=== PATIENT | male | born 1975 | race Caucasian/White ===

== ENCOUNTER 2020-12-03 21:55 | Emergency (ER) | payer MEDICARE, OTHER ==
[~2020-12-03 21:55] MED LIST: AUGMENTIN 875-1 EACH PO; BRILINTA90 MG PO; CLEOCIN HCL300 MG PO; ECOTRIN81 MG PO; GLUCAGON IV/SC 11 MG IM; GLUTOSE 1537.5 GM PO; HUMULIN N100 UNIT/1 SC; HUMULIN N100 UNIT/1 SQ; HUMULIN R100 UNIT/1 INJ; IBU600 MG PO; IBUPROFEN600 MG PO; LIPITOR40 MG PO; LISINOPRIL2.5 MG PO; LOPRESSOR 25 MG25 MG PO; PEPCID20 MG PO; Viscous lidocaine2% TOP; ZOFRAN4 MG PO
[2020-12-04] MEDS ORDERED: NORFLEX 100 MG100 MG PO (01:12)
== END 2020-12-04 01:34 | disposition home or self-care (01) ==
LOC: ER1 21:55
DX: S30.0XXA Contusion of lower back and pelvis, initial encounter (principal); M54.6 Pain in thoracic spine; E11.9 Type 2 diabetes mellitus without complications; E78.5 Hyperlipidemia, unspecified; F17.290 Nicotine dependence, other tobacco product, uncomplicated; I25.10 Atherosclerotic heart disease of native coronary artery without angina pectoris; I25.2 Old myocardial infarction; Z88.8 Allergy status to other drugs, medicaments and biological substances; Z79.4 Long term (current) use of insulin; W00.0XXA Fall on same level due to ice and snow, initial encounter
CPT/HCPCS: 72128; 72131; 99283

== ENCOUNTER 2021-01-21 16:17 | Emergency (ER) | payer MEDICARE, OTHER ==
[~2021-01-21 16:17] MED LIST changes: +NORFLEX 100 MG100 MG PO
[2021-01-21 17:06] LABS: HEMOGLOBIN 12.9 gm/dl (14.0-17.5); RED BLOOD COUNT 4.21 M/UL (4.20-5.50); WHITE BLOOD COUNT 8.5 K/UL (4.5-11.0)
[2021-01-21 18:10] LABS: BUN/CREATININE RATIO 17 (0-10)
[2021-01-21] MEDS ORDERED: TESSALON PERLE100 MG PO (20:48)
[2021-01-21] MEDS ORDERED: VENTOLIN HFA 66.7 GM INH (20:48)
[2021-01-21] MEDS ORDERED: DOXYCYCLINE HY100 MG PO (20:48)
== END 2021-01-21 21:14 | disposition home or self-care (01) ==
LOC: ER1 16:17
PROVIDERS: Physician Assistant
DX: J18.9 Pneumonia, unspecified organism (principal); E11.9 Type 2 diabetes mellitus without complications; I25.10 Atherosclerotic heart disease of native coronary artery without angina pectoris; Z90.49 Acquired absence of other specified parts of digestive tract; Z20.822 Contact with and (suspected) exposure to COVID-19
CPT/HCPCS: 0240U; 71045; 80053; 82550; 82553; 83605; 83874; 84484; 85025; 87040; 93005; 94664; 96365; 96375; 99284; J0696; J2270; J2405; Q9967

== ENCOUNTER 2021-03-23 15:16 | Emergency (ER) | payer MEDICARE, OTHER ==
[~2021-03-23 15:16] MED LIST changes: +DOXYCYCLINE HY100 MG PO; +TESSALON PERLE100 MG PO; +VENTOLIN HFA 66.7 GM INH
[2021-03-23] MEDS ORDERED: ENDOCET 5-3251 EACH PO (18:43)
== END 2021-03-23 19:50 | disposition home or self-care (01) ==
LOC: ER1 15:16
DX: M47.27 Other spondylosis with radiculopathy, lumbosacral region (principal)
CPT/HCPCS: 72128; 72131; 72170; 96374; 96375; 99284; J2270; J2405

== ENCOUNTER 2021-03-25 19:07 | Emergency (ER) | payer MEDICARE, OTHER ==
[~2021-03-25 19:07] MED LIST changes: +ENDOCET 5-3251 EACH PO
== END 2021-03-25 23:17 | disposition short-term general hospital (02) ==
LOC: ER1 19:07
DX: M54.9 Dorsalgia, unspecified (principal); I25.2 Old myocardial infarction; I51.9 Heart disease, unspecified; Z20.822 Contact with and (suspected) exposure to COVID-19
CPT/HCPCS: 96372; 96374; 96375; 96376; 99284; J2270; J2310; J2405; J2550; U0002

== ENCOUNTER 2021-04-20 19:59 | Emergency (ER) | payer MEDICARE, OTHER ==
[2021-04-20] MEDS ORDERED: PERCOCET 5-3251 EACH PO (23:46)
== END 2021-04-21 00:12 | disposition home or self-care (01) ==
LOC: ER1 19:59
DX: S39.92XA Unspecified injury of lower back, initial encounter (principal); M51.37 Other intervertebral disc degeneration, lumbosacral region; E10.9 Type 1 diabetes mellitus without complications; E78.5 Hyperlipidemia, unspecified; I10 Essential (primary) hypertension; Z90.49 Acquired absence of other specified parts of digestive tract; Z88.6 Allergy status to analgesic agent; Z88.8 Allergy status to other drugs, medicaments and biological substances; W19.XXXA Unspecified fall, initial encounter
CPT/HCPCS: 99283

== ENCOUNTER 2021-04-25 15:52 | Emergency (ER) | payer MEDICARE, OTHER ==
[~2021-04-25 15:52] MED LIST changes: +PERCOCET 5-3251 EACH PO
== END 2021-04-25 17:15 | disposition left against medical advice (07) ==
LOC: ER1 15:52
DX: Z53.21 Procedure and treatment not carried out due to patient leaving prior to being seen by health care provider (principal)

== ENCOUNTER 2021-05-02 21:15 | Emergency (ER) | payer MEDICARE, OTHER ==
[2021-05-02 22:19] LABS: BUN/CREATININE RATIO 23 (0-10)
[2021-05-02 22:24] LABS: HEMOGLOBIN 13.6 gm/dl (14.0-17.5); RED BLOOD COUNT 4.37 M/UL (4.20-5.50); WHITE BLOOD COUNT 7.4 K/UL (4.5-11.0)
== END 2021-05-03 00:10 | disposition home or self-care (01) ==
LOC: ER1 21:15
PROVIDERS: Physician Assistant
DX: K29.80 Duodenitis without bleeding (principal); K26.9 Duodenal ulcer, unspecified as acute or chronic, without hemorrhage or perforation
CPT/HCPCS: 72131; 80053; 85025; 85652; 86140; 99284

== ENCOUNTER 2021-05-16 18:53 | Emergency (ER) | payer MEDICARE, OTHER | END 2021-05-16 18:55 | disposition left against medical advice (07) | LOC: ER1 18:53 | DX: Z53.21 Procedure and treatment not carried out due to patient leaving prior to being seen by health care provider (principal) ==

== ENCOUNTER 2021-05-18 21:23 | Emergency (ER) | payer MEDICARE, OTHER | END 2021-05-18 23:05 | disposition home or self-care (01) | LOC: ER1 21:23 | DX: G89.29 Other chronic pain (principal); M54.5 Low back pain; E11.9 Type 2 diabetes mellitus without complications; I11.9 Hypertensive heart disease without heart failure; Z79.4 Long term (current) use of insulin; Z90.49 Acquired absence of other specified parts of digestive tract; Z88.8 Allergy status to other drugs, medicaments and biological substances; I25.2 Old myocardial infarction | CPT/HCPCS: 99283 ==

== ENCOUNTER 2021-05-21 20:35 | Emergency (ER) | payer MEDICARE, OTHER ==
[2021-05-21 21:33] LABS: HEMOGLOBIN 12.5 gm/dl (14.0-17.5); RED BLOOD COUNT 4.21 M/UL (4.20-5.50); WHITE BLOOD COUNT 6.2 K/UL (4.5-11.0)
[2021-05-21 21:52] LABS: BUN/CREATININE RATIO 25 (0-10)
== END 2021-05-22 05:19 | disposition short-term general hospital (02) ==
LOC: ER1 20:35
PROVIDERS: Student in an Organized Health Care Education/Training Program
DX: M40.56 Lordosis, unspecified, lumbar region (principal); I25.10 Atherosclerotic heart disease of native coronary artery without angina pectoris; E11.9 Type 2 diabetes mellitus without complications; Z90.49 Acquired absence of other specified parts of digestive tract
CPT/HCPCS: 72131; 80053; 81001; 82550; 82553; 83874; 84484; 85025; 85652; 86140; 93005; 96374; 96375; 96376; 99285; J2270; J2405

== ENCOUNTER 2021-06-02 11:06 | Emergency (ER) | payer MEDICARE, OTHER | END 2021-06-02 15:26 | disposition home or self-care (01) | LOC: ER1 11:06 | DX: S30.0XXA Contusion of lower back and pelvis, initial encounter (principal); E11.9 Type 2 diabetes mellitus without complications; I10 Essential (primary) hypertension; Z79.4 Long term (current) use of insulin; Z79.82 Long term (current) use of aspirin; Z88.8 Allergy status to other drugs, medicaments and biological substances; W17.89XA Other fall from one level to another, initial encounter; Y92.009 Unspecified place in unspecified non-institutional (private) residence as the place of occurrence of the external cause | CPT/HCPCS: 72100; 72220; 73502; 73700; 96374; 96375; 99284; J2270; J2405 ==

== ENCOUNTER 2021-06-21 13:53 | Emergency (ER) | payer MEDICARE, OTHER ==
[2021-06-21] MEDS ORDERED: BACLOFEN10 MG PO (16:56)
[2021-06-21] MEDS ORDERED: INDOCIN 50 MG C50 MG PO (16:56)
== END 2021-06-21 17:02 | disposition home or self-care (01) ==
LOC: ER1 13:53
DX: M54.5 Low back pain (principal); G89.29 Other chronic pain; E78.5 Hyperlipidemia, unspecified; E10.9 Type 1 diabetes mellitus without complications; I10 Essential (primary) hypertension; Z88.8 Allergy status to other drugs, medicaments and biological substances; Z79.899 Other long term (current) drug therapy
CPT/HCPCS: 99283

== ENCOUNTER 2021-07-31 15:02 | Emergency (ER) | payer MEDICARE, OTHER ==
[~2021-07-31 15:02] MED LIST changes: +BACLOFEN10 MG PO; +INDOCIN 50 MG C50 MG PO
[2021-07-31 15:23] LABS: HEMOGLOBIN 12.4 gm/dl (14.0-17.5); WHITE BLOOD COUNT 13.6 K/UL (4.5-11.0)
[2021-07-31 16:15] LABS: BUN/CREATININE RATIO 17 (0-10)
[2021-08-01] MEDS ORDERED: PROZAC 20 MG CA20 MG PO (23:04)
== END 2021-08-01 01:00 | disposition home or self-care (01) ==
LOC: ER1 15:02
PROVIDERS: Emergency Medicine
DX: R56.9 Unspecified convulsions (principal); R51.9 Headache, unspecified; Z20.822 Contact with and (suspected) exposure to COVID-19
CPT/HCPCS: 62270; 70450; 71045; 80053; 80307; 81001; 82962; 83605; 83735; 84100; 85025; 86140; 87040; 87086; 96365; 96374; 96375; 96376; 99285; J1170; J1885; J2250; J2270; J2405; J2550; J7030; U0003

== ENCOUNTER 2021-08-01 13:50 | Observation (INO) | payer MEDICARE, OTHER ==
[~2021-08-01] VITALS: Ht 172.7 cm; Wt 95.3 kg
[2021-08-01 15:02] LABS: HEMOGLOBIN 11.3 gm/dl (14.0-17.5); RED BLOOD COUNT 3.72 M/UL (4.20-5.50)
[2021-08-01 15:04] LABS: WHITE BLOOD COUNT 5.3 K/UL (4.5-11.0)
[2021-08-01 15:09] LABS: BUN/CREATININE RATIO 19 (0-10)
[2021-08-01 16:03] LABS: CRYPTOCOCCUS NEOFORMANS/GATTII Not Detected (Negative); CYTOMEGALOVIRUS Not Detected (Negative); ENTEROVIRUS Not Detected (Negative); ESCHERICHIA COLI K1 Not Detected (Negative); HAEMOPHILUS INFLUENZAE Not Detected (Negative); HERPES SIMPLEX VIRUS 1 Not Detected (Negative); HERPES SIMPLEX VIRUS 2 Not Detected (Negative); HUMAN HERPESVIRUS 6 Not Detected (Negative); HUMAN PARECHOVIRUS Not Detected (Negative); LISTERIA MONOCYTOGENES Not Detected (Negative); NEISERRIA MENINGITIDIS Not Detected (Negative); STREPTOCOCCUS AGALACTIAE Not Detected (Negative); STREPTOCOCCUS PNEUMONIAE Not Detected (Negative); VARICELLA ZOSTER VIRUS Not Detected (Negative)
[2021-08-01 16:41] LABS: RBC (AUTOMATED) 100 10^6 (0); WBC (AUTOMATED 2 10^3 (0-5)
[2021-08-01 16:42] LABS: GLUCOSE,CSF 130 mg/dL (50-80); TOTAL PROTEIN,CSF 74 mg/dL (20-45); WBC (AUTOMATED 12 10^3 (0-5)
[2021-08-01] MEDS ORDERED: PROZAC 20 MG CA20 MG PO (23:04)
[2021-08-02 06:23] LABS: HEMOGLOBIN 12.9 gm/dl (14.0-17.5); WHITE BLOOD COUNT 6.1 K/UL (4.5-11.0)
[2021-08-02 06:58] LABS: BUN/CREATININE RATIO 20 (0-10)
[2021-08-02 07:03] LABS: RED BLOOD COUNT 4.19 M/UL (4.20-5.50)
--- NOTE | 2021-08-02 10:23 | NUR ---
1000: PATIENT C/O LIZZIE, RN ADMINISTERED TORADOL PER ORDER. PATIENT STATES THAT HE IS LEAVING BECAUSE HE "HATES THIS PLACE". RN ATTEMPTED TO IDENTIFY REASONS FOR PATIENTS UNHAPPINESS WITH THE FACILITY, PATIENT STATES "THEY DON'T KNOW WHAT THEY ARE DOING". RN EXITED THE ROOM TO GATHER SUPPLIES TO REMOVE PATIENTS IV, BECAUSE HE WAS REMOVING IT HIMSELF. RN INFORMED DR ACEVEDO, SHE HAD JUST ARRIVED TO FLOOR. DR ABBOTT SPOKE WITH THE PATIENT AND THE PATIENTS DECISION TO LEAVE AGAINST MEDICAL ADVICE DID NOT CHANGE. 1017: PATIENT SIGNED AMA PAPER AND EXITED THE FLOOR AMBULATING TO THE ELEVATOR.
== END 2021-08-02 10:28 | disposition left against medical advice (07) ==
LOC: ER1 13:50 → CDU 19:56 → MED SURG 4 19:56
PROVIDERS: Emergency Medicine; Internal Medicine; ADMIT Internal Medicine
DX: R51.9 Headache, unspecified (principal); E10.649 Type 1 diabetes mellitus with hypoglycemia without coma; I10 Essential (primary) hypertension; I25.10 Atherosclerotic heart disease of native coronary artery without angina pectoris; Z95.5 Presence of coronary angioplasty implant and graft; Z20.822 Contact with and (suspected) exposure to COVID-19
CPT/HCPCS: 36415; 80048; 82945; 84157; 85025; 86140; 87070; 87205; 87483; 89051; 96374; 96375; 96376; 99285; G0378; J0696; J1170; J1885; J2550; J3370; J7050; J7070; U0002

== ENCOUNTER 2021-08-07 17:18 | Emergency (ER) | payer MEDICARE, OTHER ==
[~2021-08-07 17:18] MED LIST changes: +PROZAC 20 MG CA20 MG PO
[2021-08-07 18:23] LABS: HEMOGLOBIN 12.7 gm/dl (14.0-17.5); RED BLOOD COUNT 4.11 M/UL (4.20-5.50); WHITE BLOOD COUNT 5.4 K/UL (4.5-11.0)
[2021-08-07 18:49] LABS: BUN/CREATININE RATIO 20 (0-10)
[2021-08-07] MEDS ORDERED: PERCOCET 5/325 T1 EA PO (20:29)
== END 2021-08-07 20:48 | disposition home or self-care (01) ==
LOC: ER1 17:18
PROVIDERS: Emergency Medicine
DX: R51.9 Headache, unspecified (principal); I25.10 Atherosclerotic heart disease of native coronary artery without angina pectoris; E11.9 Type 2 diabetes mellitus without complications; I10 Essential (primary) hypertension
CPT/HCPCS: 70450; 72131; 80053; 85025; 85610; 85652; 85730; 86140; 87040; 96374; 96375; 96376; 99284; J2270; J2405; J7030

== ENCOUNTER 2021-09-07 20:59 | Emergency (ER) | payer MEDICARE, OTHER ==
[~2021-09-07 20:59] MED LIST changes: +PERCOCET 5/325 T1 EA PO
[2021-09-07] MEDS ORDERED: TYLENOL325 M1 PO (22:15)
== END 2021-09-07 22:29 | disposition home or self-care (01) ==
LOC: ER1 20:59
DX: Z04.3 Encounter for examination and observation following other accident (principal); E10.9 Type 1 diabetes mellitus without complications; I25.2 Old myocardial infarction; Z88.8 Allergy status to other drugs, medicaments and biological substances
CPT/HCPCS: 72040; 73030; 99283

== ENCOUNTER 2021-09-19 15:57 | Emergency (ER) | payer MEDICARE, OTHER ==
[~2021-09-19 15:57] MED LIST changes: +TYLENOL325 M1 PO
[2021-09-19 16:27] LABS: HEMOGLOBIN 14.5 gm/dl (14.0-17.5); RED BLOOD COUNT 4.73 M/UL (4.20-5.50)
[2021-09-19 16:52] LABS: BUN/CREATININE RATIO 21 (0-10)
[2021-09-19] MEDS ORDERED: PHENERGAN 25 MG25 M1 PO (19:05)
== END 2021-09-19 19:22 | disposition home or self-care (01) ==
LOC: ER1 15:57
PROVIDERS: Student in an Organized Health Care Education/Training Program
DX: R51.9 Headache, unspecified (principal); R11.10 Vomiting, unspecified; R00.0 Tachycardia, unspecified; I11.9 Hypertensive heart disease without heart failure; E11.9 Type 2 diabetes mellitus without complications; Z20.822 Contact with and (suspected) exposure to COVID-19; Z87.891 Personal history of nicotine dependence; Z88.6 Allergy status to analgesic agent
CPT/HCPCS: 71045; 80053; 82550; 82553; 83874; 84484; 85025; 96374; 99284; J0780; J1200; J1885; U0002

== ENCOUNTER 2021-10-03 19:46 | Emergency (ER) | payer MEDICARE, OTHER ==
[~2021-10-03 19:46] MED LIST changes: +PHENERGAN 25 MG25 M1 PO
[2021-10-03 21:26] LABS: RED BLOOD COUNT 4.63 M/UL (4.20-5.50)
[2021-10-03 21:40] LABS: BUN/CREATININE RATIO 19 (0-10)
== END 2021-10-04 00:29 | disposition short-term general hospital (02) ==
LOC: ER1 19:46
PROVIDERS: Emergency Medicine
DX: S09.90XA Unspecified injury of head, initial encounter (principal); M54.50 Low back pain, unspecified; Z20.822 Contact with and (suspected) exposure to COVID-19; I51.9 Heart disease, unspecified; E11.9 Type 2 diabetes mellitus without complications; R20.0 Anesthesia of skin; W01.10XA Fall on same level from slipping, tripping and stumbling with subsequent striking against unspecified object, initial encounter
CPT/HCPCS: 70450; 72131; 80053; 82550; 82553; 83874; 84484; 85025; 85652; 86140; 93005; 96374; 96375; 96376; 99285; J2270; J2405; U0002

== ENCOUNTER 2021-11-20 17:15 | Emergency (ER) | payer MEDICARE, OTHER | END 2021-11-20 22:59 | disposition left against medical advice (07) | LOC: ER1 17:15 | DX: R55 Syncope and collapse (principal); R05.9 Cough, unspecified; R11.10 Vomiting, unspecified; R00.0 Tachycardia, unspecified; R19.7 Diarrhea, unspecified; E78.5 Hyperlipidemia, unspecified; I11.9 Hypertensive heart disease without heart failure; E11.9 Type 2 diabetes mellitus without complications; Z95.5 Presence of coronary angioplasty implant and graft; Z90.49 Acquired absence of other specified parts of digestive tract; F17.220 Nicotine dependence, chewing tobacco, uncomplicated; Z88.6 Allergy status to analgesic agent | CPT/HCPCS: 99283 ==

== ENCOUNTER 2021-11-28 09:59 | Emergency (ER) | payer MEDICARE, OTHER | END 2021-11-28 10:16 | disposition left against medical advice (07) | LOC: ER1 09:59 | DX: Z53.21 Procedure and treatment not carried out due to patient leaving prior to being seen by health care provider (principal) ==

== ENCOUNTER 2021-12-16 19:41 | Observation (INO) | payer MEDICARE, OTHER ==
[~2021-12-16] VITALS: Ht 172.7 cm; Wt 98.0 kg
[2021-12-16 20:33] LABS: HEMOGLOBIN 13.5 gm/dl (14.0-17.5); RED BLOOD COUNT 4.56 M/UL (4.20-5.50); WHITE BLOOD COUNT 7.6 K/UL (4.5-11.0)
[2021-12-16 21:19] LABS: BUN/CREATININE RATIO 22 (0-10)
[2021-12-17] MEDS ORDERED: HYDROCODON-ACE1 EAC4 PO (00:06)
[2021-12-17 04:25] LABS: HEMOGLOBIN 11.9 gm/dl (14.0-17.5); RED BLOOD COUNT 4.06 M/UL (4.20-5.50); WHITE BLOOD COUNT 6.7 K/UL (4.5-11.0)
[2021-12-17 04:53] LABS: BUN/CREATININE RATIO 22 (0-10)
[2021-12-17] MEDS ORDERED: ISOSORBIDE MONO30 MG PO (16:12)
== END 2021-12-17 16:34 | disposition home or self-care (01) ==
LOC: ER1 19:41 → CDU 22:57 → MED SURG 4 22:57
PROVIDERS: Physician Assistant; ADMIT Internal Medicine
DX: I25.119 Atherosclerotic heart disease of native coronary artery with unspecified angina pectoris (principal); E10.9 Type 1 diabetes mellitus without complications; I10 Essential (primary) hypertension; E78.5 Hyperlipidemia, unspecified; Z95.5 Presence of coronary angioplasty implant and graft; Z79.82 Long term (current) use of aspirin; Z79.899 Other long term (current) drug therapy; Z87.891 Personal history of nicotine dependence
CPT/HCPCS: ECHO; 36415; 71045; 78452; 80048; 80053; 80061; 82550; 82553; 82962; 83036; 83735; 83880; 84439; 84443; 84484; 85025; 93005; 93017; 93306; 96374; 96376; 99285; A9502; G0378; J2270; J2785

== ENCOUNTER 2021-12-22 10:26 | Emergency (ER) | payer MEDICARE, OTHER ==
[~2021-12-22 10:26] MED LIST changes: +HYDROCODON-ACE1 EAC4 PO; +ISOSORBIDE MONO30 MG PO
[2021-12-22 11:01] LABS: HEMOGLOBIN 13.7 gm/dl (14.0-17.5); RED BLOOD COUNT 4.64 M/UL (4.20-5.50); WHITE BLOOD COUNT 7.8 K/UL (4.5-11.0)
[2021-12-22 11:30] LABS: BUN/CREATININE RATIO 17 (0-10)
== END 2021-12-22 14:54 | disposition home or self-care (01) ==
LOC: ER1 10:26
PROVIDERS: Physician Assistant
DX: R10.9 Unspecified abdominal pain (principal); R00.0 Tachycardia, unspecified; Z87.442 Personal history of urinary calculi; Z88.6 Allergy status to analgesic agent
CPT/HCPCS: 80053; 81001; 83605; 83690; 85025; 87040; 87086; 96374; 96375; 99284; J1885; J2270; J2405

== ENCOUNTER 2022-01-31 18:41 | Emergency (ER) | payer MEDICARE, OTHER ==
[2022-01-31 19:32] LABS: RED BLOOD COUNT 3.94 M/UL (4.20-5.50); WHITE BLOOD COUNT 4.9 K/UL (4.5-11.0)
[2022-01-31 20:22] LABS: BUN/CREATININE RATIO 21 (0-10)
[2022-01-31] MEDS ORDERED: ZOFRAN 4 MG TAB4 MG PO (22:59)
== END 2022-01-31 23:10 | disposition home or self-care (01) ==
LOC: ER1 18:41
PROVIDERS: Physician Assistant
DX: R07.9 Chest pain, unspecified (principal); E11.9 Type 2 diabetes mellitus without complications; I10 Essential (primary) hypertension; Z88.8 Allergy status to other drugs, medicaments and biological substances; Z79.4 Long term (current) use of insulin
CPT/HCPCS: 71045; 80053; 81001; 82550; 82553; 82962; 83880; 84484; 85025; 93005; 96374; 96375; 99285; C9113; J2405; J7030

== ENCOUNTER 2022-02-19 17:31 | Emergency (ER) | payer MEDICARE, OTHER ==
[~2022-02-19 17:31] MED LIST changes: +ZOFRAN 4 MG TAB4 MG PO
[2022-02-19 18:49] LABS: HEMOGLOBIN 13.4 gm/dl (14.0-17.5); RED BLOOD COUNT 4.31 M/UL (4.20-5.50); WHITE BLOOD COUNT 6.9 K/UL (4.5-11.0)
[2022-02-19 19:14] LABS: BUN/CREATININE RATIO 24 (0-10)
[2022-02-19] MEDS ORDERED: PROTONIX40 MG PO (21:13)
== END 2022-02-19 21:25 | disposition home or self-care (01) ==
LOC: ER1 17:31
PROVIDERS: Physician Assistant
DX: K21.9 Gastro-esophageal reflux disease without esophagitis (principal); I11.9 Hypertensive heart disease without heart failure; E10.9 Type 1 diabetes mellitus without complications; Z88.6 Allergy status to analgesic agent; Z79.82 Long term (current) use of aspirin; Z95.5 Presence of coronary angioplasty implant and graft; Z79.899 Other long term (current) drug therapy
CPT/HCPCS: 71045; 80053; 82550; 82553; 83605; 83690; 84484; 85025; 85610; 93005; 96374; 96375; 96376; 99285; C9113; J2270; J2405; J7030; Q9967

== ENCOUNTER 2022-02-23 12:28 | Emergency (ER) | payer MEDICARE, OTHER ==
[~2022-02-23 12:28] MED LIST changes: +PROTONIX40 MG PO
[2022-02-23 13:17] LABS: HEMOGLOBIN 13.7 gm/dl (14.0-17.5); RED BLOOD COUNT 4.43 M/UL (4.20-5.50); WHITE BLOOD COUNT 6.2 K/UL (4.5-11.0)
[2022-02-23 13:44] LABS: BUN/CREATININE RATIO 20 (0-10)
[2022-02-23] MEDS ORDERED: ONDANSETRON ODT4 MG SL (20:53)
[2022-02-23] MEDS ORDERED: CARAFATE 1 GM TA1 GM PO (20:53)
== END 2022-02-23 21:00 | disposition home or self-care (01) ==
LOC: ER1 12:28
PROVIDERS: Physician Assistant
DX: R10.13 Epigastric pain (principal); E10.649 Type 1 diabetes mellitus with hypoglycemia without coma; K92.0 Hematemesis; I11.9 Hypertensive heart disease without heart failure; F17.200 Nicotine dependence, unspecified, uncomplicated; Z87.442 Personal history of urinary calculi; Z88.6 Allergy status to analgesic agent; Z79.82 Long term (current) use of aspirin
CPT/HCPCS: 74022; 80053; 81001; 82550; 82553; 82962; 83690; 84484; 85025; 93005; 96374; 96375; 96376; 99284; C9113; J2270; J2405

== ENCOUNTER → 2022-02-26 | Outpatient (CLI) | payer MEDICARE, OTHER ==
[~2022-02-26] MED LIST changes: +CARAFATE 1 GM TA1 GM PO; +ONDANSETRON ODT4 MG SL
== END ==
LOC: LAB 09:01
DX: R10.13 Epigastric pain (principal)
CPT/HCPCS: 36415; 82150; 83690

== ENCOUNTER → 2022-02-28 | Day surgery (SDC) | payer MEDICARE, OTHER | END | disposition home or self-care (01) | LOC: OR 07:08 | DX: K31.9 Disease of stomach and duodenum, unspecified (principal); K21.00 Gastro-esophageal reflux disease with esophagitis, without bleeding; K92.0 Hematemesis; E66.9 Obesity, unspecified; I10 Essential (primary) hypertension; E10.9 Type 1 diabetes mellitus without complications; E78.5 Hyperlipidemia, unspecified; Z68.31 Body mass index [BMI] 31.0-31.9, adult; Z79.82 Long term (current) use of aspirin; Z79.899 Other long term (current) drug therapy | CPT/HCPCS: 82962; J2001; J2405; J2704; J3010; J7040 ==

== ENCOUNTER 2022-03-27 21:44 | Emergency (ER) | payer MEDICARE, OTHER ==
[~2022-03-27 21:44] MED LIST changes: +ZOFRAN ODT 4 MG4 MG PO
== END 2022-03-28 03:22 | disposition home or self-care (01) ==
LOC: ER1 21:44
DX: S39.012A Strain of muscle, fascia and tendon of lower back, initial encounter (principal); E11.9 Type 2 diabetes mellitus without complications; I11.9 Hypertensive heart disease without heart failure; Z88.6 Allergy status to analgesic agent; F17.200 Nicotine dependence, unspecified, uncomplicated; X50.9XXA Other and unspecified overexertion or strenuous movements or postures, initial encounter
CPT/HCPCS: 72128; 72131; 99284; J2270

== ENCOUNTER 2022-03-29 20:59 | Emergency (ER) | payer MEDICARE, OTHER | END 2022-03-30 00:13 | disposition left against medical advice (07) | LOC: ER1 20:59 | DX: M25.512 Pain in left shoulder (principal); R07.81 Pleurodynia; R07.89 Other chest pain; M54.2 Cervicalgia; E78.5 Hyperlipidemia, unspecified; F17.210 Nicotine dependence, cigarettes, uncomplicated; I11.9 Hypertensive heart disease without heart failure; I25.10 Atherosclerotic heart disease of native coronary artery without angina pectoris; I25.2 Old myocardial infarction; E11.9 Type 2 diabetes mellitus without complications; Z79.4 Long term (current) use of insulin; Z88.6 Allergy status to analgesic agent; W19.XXXA Unspecified fall, initial encounter | CPT/HCPCS: 71045; 72125; 72128; 72131; 73030; 99283 ==

== ENCOUNTER 2022-04-20 18:42 | Emergency (ER) | payer MEDICARE, OTHER ==
[2022-04-20 20:07] LABS: RED BLOOD COUNT 4.41 M/UL (4.20-5.50); WHITE BLOOD COUNT 7.2 K/UL (4.5-11.0)
[2022-04-20 20:28] LABS: BUN/CREATININE RATIO 22 (0-10)
== END 2022-04-20 21:25 | disposition home or self-care (01) ==
LOC: ER1 18:42
PROVIDERS: Student in an Organized Health Care Education/Training Program
DX: E11.649 Type 2 diabetes mellitus with hypoglycemia without coma (principal); I10 Essential (primary) hypertension; F17.210 Nicotine dependence, cigarettes, uncomplicated; Z88.6 Allergy status to analgesic agent; Z79.4 Long term (current) use of insulin; Z95.5 Presence of coronary angioplasty implant and graft
CPT/HCPCS: 80053; 82550; 82553; 82962; 83605; 84484; 85025; 93005; 99285

== ENCOUNTER 2022-05-01 15:04 | Emergency (ER) | payer MEDICARE, OTHER ==
[2022-05-01 15:52] LABS: HEMOGLOBIN 13.1 gm/dl (14.0-17.5); RED BLOOD COUNT 4.24 M/UL (4.20-5.50); WHITE BLOOD COUNT 7.3 K/UL (4.5-11.0)
[2022-05-01 16:16] LABS: BUN/CREATININE RATIO 18 (0-10)
[2022-05-01] MEDS ORDERED: ZOFRAN ODT 4 MG4 MG SL (18:12)
[2022-05-01] MEDS ORDERED: BUTALB-ACETAMI1 EAC1 PO (18:12)
== END 2022-05-01 18:35 | disposition home or self-care (01) ==
LOC: ER1 15:04
PROVIDERS: Emergency Medicine
DX: E10.65 Type 1 diabetes mellitus with hyperglycemia (principal); R51.9 Headache, unspecified; R11.2 Nausea with vomiting, unspecified; R19.7 Diarrhea, unspecified; I11.9 Hypertensive heart disease without heart failure; F17.200 Nicotine dependence, unspecified, uncomplicated; I25.10 Atherosclerotic heart disease of native coronary artery without angina pectoris; Z20.822 Contact with and (suspected) exposure to COVID-19; Z95.5 Presence of coronary angioplasty implant and graft; Z87.442 Personal history of urinary calculi
CPT/HCPCS: 0241U; 80053; 82962; 85025; 99284; J1100; J1200; J2765

== ENCOUNTER 2022-05-22 14:30 | Emergency (ER) | payer MEDICARE, OTHER ==
[~2022-05-22 14:30] MED LIST changes: +BUTALB-ACETAMI1 EAC1 PO; +ZOFRAN ODT 4 MG4 MG SL
[2022-05-22 16:01] LABS: HEMOGLOBIN 13.3 gm/dl (14.0-17.5); RED BLOOD COUNT 4.28 M/UL (4.20-5.50); WHITE BLOOD COUNT 13.7 K/UL (4.5-11.0)
[2022-05-22 16:22] LABS: BUN/CREATININE RATIO 20 (0-10)
[2022-05-22 16:25] LABS: BORDETELLA PARAPERTUSSIS Not Detected (Not Detectd); BORDETELLA PERTUSSIS Not Detected (Not Detectd); CHLAMYDIA PNEUMONIAE Not Detected (Not Detectd); CORONAVIRUS HKU1 Not Detected (Not Detectd); CORONAVIRUS NL63 Not Detected (Not Detectd); CORONAVIRUS OC43 Not Detected (Not Detectd); CORONOAVIRUS 229E Not Detected (Not Detectd); HUMAN METAPNEUMOVIRUS Not Detected (Not Detectd); HUMAN RHINOVIRUS/ENTEROVIRUS Not Detected (Not Detectd); INFLUENZA A Not Detected (Not Detectd); INFLUENZA B Not Detected (Not Detectd); MYCOPLASMA PNEUMONIAE Not Detected (Not Detectd); PARAINFLUENZA VIRUS 1 Not Detected (Not Detectd); PARAINFLUENZA VIRUS 2 Not Detected (Not Detectd); PARAINFLUENZA VIRUS 3 Not Detected (Not Detectd); PARAINFLUENZA VIRUS 4 Not Detected (Not Detectd); RESPIRATORY SYNCYTIAL VIRUS Not Detected (Not Detectd)
[2022-05-22 17:31] LABS: SARS-CoV-2 NOT DETECTED (Not Detectd)
[2022-05-22] MEDS ORDERED: VIBRAMYCIN100 MG PO (19:56)
== END 2022-05-22 20:20 | disposition home or self-care (01) ==
LOC: ER1 14:30
PROVIDERS: Physician Assistant
DX: J06.9 Acute upper respiratory infection, unspecified (principal); J40 Bronchitis, not specified as acute or chronic; I25.10 Atherosclerotic heart disease of native coronary artery without angina pectoris; I25.2 Old myocardial infarction; E11.9 Type 2 diabetes mellitus without complications; Z79.4 Long term (current) use of insulin; Z20.822 Contact with and (suspected) exposure to COVID-19
CPT/HCPCS: 71045; 80053; 82550; 82553; 82962; 83605; 84484; 85025; 85610; 87040; 87633; 93005; 96374; 96375; 99285; J1100; J1885; J2543; Q9967

== ENCOUNTER 2022-07-03 15:24 | Emergency (ER) | payer MEDICARE, OTHER ==
[~2022-07-03 15:24] MED LIST changes: +VIBRAMYCIN100 MG PO
[2022-07-03 16:57] LABS: HEMOGLOBIN 13.6 gm/dl (14.0-17.5); RED BLOOD COUNT 4.49 M/UL (4.20-5.50); WHITE BLOOD COUNT 6.2 K/UL (4.5-11.0)
[2022-07-03 17:29] LABS: BUN/CREATININE RATIO 20 (0-10)
== END 2022-07-04 00:09 | disposition home or self-care (01) ==
LOC: ER1 15:24
PROVIDERS: Physician Assistant
DX: M54.50 Low back pain, unspecified (principal); R20.2 Paresthesia of skin; E11.9 Type 2 diabetes mellitus without complications; I10 Essential (primary) hypertension; Z79.4 Long term (current) use of insulin; E78.5 Hyperlipidemia, unspecified; Z88.6 Allergy status to analgesic agent; Z87.442 Personal history of urinary calculi; Z87.891 Personal history of nicotine dependence; W17.89XA Other fall from one level to another, initial encounter
CPT/HCPCS: 72128; 72131; 72192; 73502; 80053; 81001; 82962; 83605; 85025; 87040; 96374; 96375; 96376; 99284; J2270; J2405; U0002